=== PATIENT | female | born 1985 | race Caucasian/White ===

== ENCOUNTER → 2016-11-21 | Outpatient (CLI) | payer OTHER ==
[~2016-11-21] MED LIST: AC325T; FERR-57 PO; IBP800T PO; OXYC-12 PO; PREN1TAB64 PO; PRENATAL VITAMIN
--- NOTE | 2016-11-21 17:45 | Diagnostic Imaging Report ---
Bilateral diagnostic mammogram with tomography. No prior studies are available for comparison. The current study was also evaluated with a Computer Aided Detection (CAD) system. FINDINGS: There are scattered fibroglandular densities seen. The palpable area in the right breast upper-outer aspect is marked with a focal asymmetry seen at that location. Focal compression views is performed as well as tomographic evaluation which is suggestive of underlying fibroglandular tissue with no definite mass. The left breast demonstrates no suspicious finding. IMPRESSION: Focal asymmetry in the upper-outer aspect of the right breast is favored to be related to summation artifact of parenchyma. Ultrasound evaluation is pending. ACR BI-RADS Category 0: Incomplete. (Needs additional imaging evaluation). Result letter will be mailed to the patient. Note: At least 10% of breast cancer is not imaged by mammography. Dictated by: Dictated on workstation # [id number]
--- NOTE | 2016-11-21 17:50 | Diagnostic Imaging Report ---
EXAMINATION: Right breast ultrasound. INDICATION: Lump at the 10:30 o'clock position. FINDINGS: Area of lump was scanned with no underlying abnormality seen. IMPRESSION: Negative study. Clinical followup of the area of palpable lump is recommended. ACR BI-RADS Category 1: Negative. Result letter will be mailed to the patient. Note: At least 10% of breast cancer is not imaged by mammography. Dictated by: Dictated on workstation # [id number]
== END ==
LOC: RAD 08:39
PROVIDERS: ATTEND Nurse Practitioner Family
DX: N63.10 Unspecified lump in the right breast, unspecified quadrant (principal)
CPT/HCPCS: 77066